=== PATIENT | male | born 2000 | race Caucasian/White ===

== ENCOUNTER 2024-02-07 00:15 | Emergency (ER) | payer BC, OTHER ==
[~2024-02-07] VITALS: Ht 165.1 cm; Wt 63.5 kg
[2024-02-07 01:04] VITALS: BP 154/86; PULSE 65; RESP 18; TEMP 97
[2024-02-07] MEDS ORDERED: EPIN1KIT31 IM (02:41)
[2024-02-07] MEDS ORDERED: PRED20TA5 PO (02:41)
[2024-02-07] MEDS: predniSONE 20 MG TAB PO ONE (02:46)
[2024-02-07 02:50] VITALS: BP 154/86; PULSE 65; RESP 18; TEMP 97
== END 2024-02-07 02:50 | disposition home or self-care (01) ==
LOC: MED 00:15
DX: R22.0 Localized swelling, mass and lump, head (principal); T78.49XA Other allergy, initial encounter; Z79.899 Other long term (current) drug therapy; X58.XXXA Exposure to other specified factors, initial encounter
CPT/HCPCS: 99283; J7512